=== PATIENT | male | born 1965 | race African-American/Black ===

== ENCOUNTER 2019-05-25 18:45 | Emergency (ER) | payer SELFPAY ==
[~2019-05-25] VITALS: Ht 170.2 cm; Wt 63.6 kg
[2019-05-25] MEDS ORDERED: IBUPROFEN 600 MG TABLET PO ONE (20:30)
[2019-05-25 21:36] VITALS: BP 130/71
== END 2019-05-25 21:37 | disposition home or self-care (01) ==
LOC: EMS 18:47
DX: S82.831A Other fracture of upper and lower end of right fibula, initial encounter for closed fracture (principal); F20.9 Schizophrenia, unspecified; F17.210 Nicotine dependence, cigarettes, uncomplicated; X50.1XXA Overexertion from prolonged static or awkward postures, initial encounter; Y93.01 Activity, walking, marching and hiking; Y92.89 Other specified places as the place of occurrence of the external cause; Y99.8 Other external cause status
CPT/HCPCS: 29515

== ENCOUNTER 2020-05-27 03:51 | Emergency (ER) | payer SELFPAY ==
[~2020-05-27] VITALS: Ht 175.3 cm; Wt 61.0 kg
[2020-05-27 03:52] VITALS: BP 0/0
[2020-05-27 07:46] LABS: COVID AG,FIA SOURCE NASOPHARYNGEAL
== END 2020-05-27 09:20 ==
LOC: EDUNIT# 03:51 → EMS 04:01
DX: I46.9 Cardiac arrest, cause unspecified (principal); F20.9 Schizophrenia, unspecified; F17.210 Nicotine dependence, cigarettes, uncomplicated; Z20.822 Contact with and (suspected) exposure to COVID-19
CPT/HCPCS: 82962; 87426; 92950; 99285; U0003